=== PATIENT | female | born 1965 | race Caucasian/White ===

== ENCOUNTER 2019-07-01 10:09 | Emergency (ER) | payer MEDICAID, OTHER ==
[~2019-07-01] VITALS: Ht 157.5 cm; Wt 67.2 kg
[2019-07-01 10:11] VITALS: BP 136/75
[2019-07-01] MEDS ORDERED: HYDROcodone/APAP 5/325 TABLET PO ONE (10:30)
[2019-07-01] MEDS ORDERED: HYDROcodone/APAP 5/325 TABLET ONE (10:41)
--- NOTE | 2019-07-01 10:43 | NUR ---
pt refusing norco at this time, stating pain tolerable.
--- NOTE | 2019-07-01 11:08 | NUR ---
pt given dc instructions and script, educated regarding rx for naproxen. pt a&o, resps even and unlabored. sling placed to right arm per EDPA's instructions, cms intact s/p sling. pt amb to dc desk with steady gait, nadn at dc.
== END 2019-07-01 11:08 | disposition home or self-care (01) ==
LOC: ED 11:00
DX: S43.421A Sprain of right rotator cuff capsule, initial encounter (principal); W19.XXXA Unspecified fall, initial encounter; Y93.89 Activity, other specified; Y92.098 Other place in other non-institutional residence as the place of occurrence of the external cause; Y99.8 Other external cause status
CPT/HCPCS: 99283